=== PATIENT | male | born 1990 | race Caucasian/White ===

== ENCOUNTER 2022-04-29 14:37 | Outpatient (CLI) | payer OTHER ==
[2022-04-29 19:39] LABS: BASOPHILS % (AUTO) 0.6 %; EOSINOPHILS # (AUTO) 0.2 10^3/uL (0.0-0.7); EOSINOPHILS % (AUTO) 2.4 %; HCT - HEMATOCRIT 41.5 % (42.0-52.0); HGB - HEMOGLOBIN 14.6 g/dL (14.0-18.0); LYMPHOCYTES # (AUTO) 2.8 10^3/uL (1.5-3.5); LYMPHOCYTES % (AUTO) 43.8 %; MEAN CORPUSCULAR HEMOGLOBIN 31.5 pg (27.0-31.0); MEAN CORPUSCULAR HGB CONC 35.2 g/dL (32.0-36.0); MEAN CORPUSCULAR VOLUME 89.6 fL (80.0-94.0); MEAN PLATELET VOLUME 10.2 fL (7.4-11.4); MONOCYTES # (AUTO) 0.5 10^3/uL (0.0-1.0); MONOCYTES % (AUTO) 7.4 %; NEUTROPHILS # (AUTO) 2.9 10^3/uL (1.5-6.6); NEUTROPHILS % (AUTO) 45.5 %; PLT - PLATELET COUNT 240 10^3/uL (130-450); RED BLOOD COUNT 4.63 10^6/uL (4.70-6.10); RED CELL DISTRIBUTION WIDTH 12.2 % (12.0-15.0); WHITE BLOOD COUNT 6.4 x10^3/uL (4.8-10.8)
[2022-04-29 19:55] LABS: ALBUMIN 4.4 g/dL (3.2-5.5); ALBUMIN/GLOBULIN RATIO 1.4 (1.0-2.2); ALKALINE PHOSPHATASE 65 IU/L (42-121); ALT ALANINE AMINOTRANSFERASE 91 IU/L (10-60); AST ASPARTATE AMINOTRANSFERASE 38 IU/L (10-42); BILIRUBIN,DIRECT 0.1 mg/dL (0.1-0.5); BILIRUBIN,TOTAL 0.8 mg/dL (0.2-1.0); BUN - BLOOD UREA NITROGEN 15 mg/dL (6-20); CALCIUM 9.5 mg/dL (8.5-10.3); CARBON DIOXIDE - CO2 30 mmol/L (21-32); CHLORIDE 95 mmol/L (101-111); CHOL/HDL RATIO 7.4 (<5.0); CHOLESTEROL 215 mg/dL; CREATININE 1.1 mg/dL (0.6-1.2); GFR - MDRD 78 (>89); GLUCOSE 97 mg/dL (70-100); HDL CHOLESTEROL 29 mg/dL; LDL CHOLESTEROL,CALCULATED 150 mg/dL; LDL/HDL RATIO 5.2 (<3.6); POTASSIUM 2.6 mmol/L (3.5-5.0); SODIUM 135 mmol/L (135-145); TOTAL PROTEIN 7.6 g/dL (6.7-8.2); TRIGLYCERIDES 182 mg/dL; VLDL CHOLESTEROL 36 mg/dL
[2022-04-29 20:04] LABS: THYROID STIMULATING HORMONE 2.67 uIU/mL (0.34-5.60)
[2022-04-29 21:26] LABS: ESTIMATED AVERAGE GLUCOSE 111 mg/dL (70-100); HEMOGLOBIN A1c% 5.5 % (4.27-6.07)
[2022-05-01 07:09] LABS: HCV AB <0.1 s/co ratio (0.0-0.9)
[2022-05-02 00:08] LABS: HIV SCREEN 4TH GENERATION Non Reactive (Non Reactive)
== END 2022-04-29 14:38 | disposition home or self-care (01) ==
LOC: LAB.S 14:37
PROVIDERS: ATTEND Nurse Practitioner Acute Care
DX: R94.5 Abnormal results of liver function studies (principal); Z79.899 Other long term (current) drug therapy; Z13.220 Encounter for screening for lipoid disorders; Z13.1 Encounter for screening for diabetes mellitus; Z13.29 Encounter for screening for other suspected endocrine disorder; Z11.4 Encounter for screening for human immunodeficiency virus [HIV]
CPT/HCPCS: 36415; 80053; 80061; 82248; 83036; 83721; 84443; 85025; 86803; 87389

== ENCOUNTER 2022-05-05 12:55 | Outpatient (CLI) | payer OTHER ==
[2022-05-05 14:40] LABS: MAGNESIUM 1.9 mg/dL (1.7-2.8); POTASSIUM 3.2 mmol/L (3.5-5.0)
== END 2022-05-05 12:56 | disposition home or self-care (01) ==
LOC: LAB.S 12:55
PROVIDERS: ATTEND Nurse Practitioner Acute Care
DX: E87.6 Hypokalemia (principal); Z79.899 Other long term (current) drug therapy
CPT/HCPCS: 36415; 83735; 84132

== ENCOUNTER 2022-05-25 14:23 | Outpatient (CLI) | payer OTHER ==
[2022-05-25 20:39] LABS: MAGNESIUM 2.1 mg/dL (1.7-2.8); POTASSIUM 3.4 mmol/L (3.5-5.0)
== END 2022-05-25 14:24 | disposition home or self-care (01) ==
LOC: LAB.S 14:23
PROVIDERS: ATTEND Nurse Practitioner Acute Care
DX: E87.6 Hypokalemia (principal); E83.42 Hypomagnesemia
CPT/HCPCS: 36415; 83735; 84132

== ENCOUNTER 2022-06-12 13:06 | Outpatient (CLI) | payer OTHER ==
[2022-06-12 14:24] VITALS: BP 188/110
--- NOTE | 2022-06-12 14:24 | SLEEP CARE CONSULTATION ---
Information from patient questionnaire entered by Dora Milian. I have reviewed and concur with the information entered by Dora Milian. This document represents the service I personally performed and the decisions made by me, Viridiana Chavez ARNP. History of Present Illness Service Date and Time: 06/12/2022 1306 Reason for Visit: New patient, sleep apnea on CPAP therapy Chief Complaint: reports: Other (UPDATE SUPPLIES) Date of Onset: 2YRS Usual bedtime: 2-3AM Time it takes to fall asleep: 1HR Snores at night: Yes Observed to quit breathing while asleep: Yes Sleeps alone due to snoring: No Number of times waking at night: 0 Toss, Turn, or Twitch while sleeping: Yes Recalls having dreams: No Usually gets out of bed at: 11-AM-12PM Feels refreshed in the morning: No Morning headache: No Sleepy or fatigued during the day: Yes Ever fallen asleep while driving: No Takes day naps: Yes Dreams during day naps: No Prior sleep studies: Yes (11/21/2019 [facility] ) Additional HPI information: BLAKE BENSON was previously diagnosed to have unknown, AHI unknown, sleep apnea-hypopnea syndrome and comes in today to establish care for CPAP therapy. He was diagnosed at [facility] in 2019 and states he was told it was very bad. - Parasomnia Symptoms Ever been unable to move upon waking from sleep: No Walks in sleep: No Talks in sleep: No Ever acted out dreams in sleep: No Ever felt weak in the knees when startled or emotional: No Bothered by creepy, crawly, restless sensations in legs: No Problems with memory or concentration: Yes CPAP Compliance Data - Data Reviewed with Patient Average duration of nightly device use: 6 hours 59 minutes Compliance rate %: 97.2 (180/180 days used) Current pressure setting (cmH2O): 6-11 Average residual AHI: 2.2 Central apnea: 0.2 Obstructive apnea: 0.2 Hypopnea: 1.8 Compliance data discussion: He has a Dreamstation that was setup 08/2019. He was getting supplies from [employer] but started having trouble getting them about a year ago and now is buying them online. He is using a full face, Resmed Airfit F20 mask. Subjective Patient concerns: reports: dry mouth, nose, throat (occasionally), other (occasional dry eye). denies: aerophagia, mask discomfort, air blowing in eyes, mask leak noise, condensation in mask/hose, nasal congestion, epistaxis Observed to snore while using device: No Current pressure setting perceived as: comfortable On therapy, patient: reports: sleeping better, awakening more refreshed, being more awake and alert during the day, more rested overall, other (can't sleep without machine). denies: drowsiness while driving Initial [place] Sleepiness Scale score: 3 Past Medical History Past Medical History: reports: Hypertension, Asthma Social History The patient's occupation is a [employer]. Patient is Single and lives in [place]. Have you smoked in the past 12 months: No Alcohol use: Yes Alcohol amount and frequency: 1-2 DRINKS RARELY Caffeine use: Yes Caffeine amount and frequency: 1-2 DRINKS DAILY Family History Family history of sleep disordered breathing: No Family Hx Sleep Apnea: Mother: Snoring, Father: Snoring Allergies and Home Medications Known drug allergies: No Drug allergies reviewed: Yes Home medication list reviewed: Yes Allergy and home medication list: Medications: Losartan Amlodipine vitamin D Review of Systems Weight gain over past 5 years: 30 Cardiovascular: reports: high blood pressure Respiratory: reports: shortness of breath Neurological: denies: headaches Psychiatric: denies: anxiety, depression Ear/Nose/Throat: denies: tonsillectomy, wisdom teeth removed Endocrine: reports: sluggishness Physical Exam Vital signs obtained and entered by: DORA López MA Blood Pressure: 188/110 (LEFT ARM) Cuff size: regular Heart Rate: 128 O2 Saturation: 96 Height: 5 ft 11 in Weight: 251 lb 9.6 oz Body Mass Index: 35.1 BMI Classification: Obese Neck circumference: 18.5 Heart: regular rate and rhythm Lungs: clear bilaterally Impression and Plan 1. Obstructive Sleep Apnea-Hypopnea Syndrome, unknown, with good treatment compliance and good apnea control. On CPAP therapy, the patient has better sleep quality and is more rested overall. He has a [employer] Dreamstation that is on the recall but he was told he had to send the machine back to them for them to fix i t. He did not know when he would get it back and felt he could not go without his CPAP for long time. He states he read somewhere that his insurance ([employer]) would replace a recalled device for those who have not got a replacement. He would like to try to replace his machine. We have requested his sleep study results from his last sleep provider but have not yet received them. Once I have his last sleep study, I will be able to try to write for a replacement CPAP. If we are unable to obtain adequate records of his sleep study I will try to authorize a new sleep study to verify his diagnosis and severity. He would also like to try a different DME in the area. I will also add this to his prescription once I have the other records I need to write the order. He voiced understanding and agreement with plan. Patient's apnea severity and rationale for treatment to reduce apnea, improve sleep quality and reduce cardiovascular and cerebrovascular events was reviewed. I also reviewed the benefit of consistent device use of CPAP for hypertension. 2. Obesity, unspecified. Currently patients BMI is 35.1. Obesity increases the risk of apnea, CPAP pressure requirements and overall health risks especially cardiovascular and diabetes. Thus patient is advised to lose weight. * Change auto CPAP pressure to 9-11 cmH2O * Obtain copy of his sleep study prior to updating supplies and machine * Update machine if insurance will allow it * Update supplies * Transfer DME * Notify me if snoring with mask or feeling that the pressure is too much or too little * Attempt to lose weight * Call this office if any problems using CPAP * Return for follow up either after updating machine or sleep study, or sooner if concerns arise Counseling Topics: Weight loss health impact Visit Type: In Office Time Spent with Patient (minutes): 40 Provider Statement: I spent 100% of the Face to Face Visit with the patient with greater than 50% spent counseling the patient and coordination of care.
== END 2022-06-12 13:07 | disposition home or self-care (01) ==
LOC: SC 13:06
PROVIDERS: ATTEND Nurse Practitioner Family
DX: G47.33 Obstructive sleep apnea (adult) (pediatric) (principal); E66.9 Obesity, unspecified; Z68.35 Body mass index [BMI] 35.0-35.9, adult
CPT/HCPCS: 99203; 99212

== ENCOUNTER 2022-07-17 12:41 | Outpatient (CLI) | payer MEDICAID ==
[2022-07-17 14:42] LABS: POTASSIUM 3.4 mmol/L (3.5-5.0)
== END 2022-07-17 12:42 | disposition home or self-care (01) ==
LOC: LAB.S 12:41
PROVIDERS: ATTEND Nurse Practitioner Acute Care
DX: E87.6 Hypokalemia (principal); E83.42 Hypomagnesemia
CPT/HCPCS: 36415; 83735; 84132

== ENCOUNTER 2022-08-18 08:57 | Outpatient (CLI) | payer MEDICAID ==
[2022-09-03 19:07] LABS: ALDOSTERONE 11.2 ng/dL (0.0-30.0); ALDOSTERONE/RENIN RATIO 31.3 (0.0-30.0); RENIN ACTIVITY PLASMA 0.358 ng/mL/hr (0.167-5.380)
== END 2022-08-18 08:58 | disposition home or self-care (01) ==
LOC: LAB.S 08:57
PROVIDERS: ATTEND Nurse Practitioner Acute Care
DX: I10 Essential (primary) hypertension (principal); E87.6 Hypokalemia
CPT/HCPCS: 36415; 82088; 84132; 84244

== ENCOUNTER 2022-09-28 13:15 | Outpatient (CLI) | payer MEDICAID | END 2022-09-28 13:16 | disposition home or self-care (01) | LOC: LAB.S 13:15 | PROVIDERS: ATTEND Nurse Practitioner Acute Care | DX: E87.6 Hypokalemia (principal) | CPT/HCPCS: 36415; 84132 ==

== ENCOUNTER 2022-10-08 06:49 | Outpatient (CLI) | payer MEDICAID ==
--- NOTE | 2022-10-08 12:47 | Ultrasound Report ---
PROCEDURE: Arterial Visceral Complete INDICATIONS: RESISTANT HYPERTENSIVE DISORDER TECHNIQUE: Real time scanning was performed of both kidneys, followed by Color and pulsed Doppler in terrogation of the renal vessels. COMPARISON: None FINDINGS: Aortic peak systolic velocity: 126 cm/s. Right side: [place]-scale imaging: The right kidney measures 10.8 cm in length. No hydronephrosis. No nephrolithias is. Renal cortex is normal in echogenicity. No suspicious solid renal masses. Proximal renal artery peak systolic velocity: 122 cm/s. Mid renal artery peak systolic velocity: 133 cm/s. Distal renal artery peak systolic velocity: 101 cm/s. Renal vein: Patent, without thrombus. Peak renal/aortic ratio (RAR): 1.06. Left side: Branham-scale imaging: The left kidney measures 12.8 cm in length. No hydronephrosis. The left kidney h as a 1.2 cm cyst No nephrolithiasis. Renal cortex is normal in echogenicity. No suspicious solid re nal masses. Proximal renal artery peak systolic velocity: 116 cm/s. Mid-renal artery peak systolic velocity: 138 cm/s. Distal renal artery peak systolic velocity: 125 cm/s. Renal vein: Patent, without thrombus. Peak renal/aortic ratio (RAR): 1.1. IMPRESSION: No ultrasound evidence of renal artery stenosis. Reviewed by: Calixto Rogers on 10/08/2022 12:46 PM PDT Approved by: Calixto Rogers on 10/08/2022 12:46 PM PDT Station ID: [id number]
== END 2022-10-08 06:50 | disposition home or self-care (01) ==
LOC: DI 06:49
PROVIDERS: ATTEND Nurse Practitioner Acute Care
DX: I10 Essential (primary) hypertension (principal)
CPT/HCPCS: 93975

== ENCOUNTER 2022-11-24 13:17 | Outpatient (CLI) | payer MEDICAID | END 2022-11-24 13:18 | disposition home or self-care (01) | LOC: LAB.S 13:17 | PROVIDERS: ATTEND Nurse Practitioner Acute Care | DX: E87.6 Hypokalemia (principal) | CPT/HCPCS: 36415; 84132 ==

== ENCOUNTER 2023-01-18 14:31 | Outpatient (CLI) | payer MEDICAID | END 2023-01-18 14:32 | disposition home or self-care (01) | LOC: MAC.MOP 14:31 | PROVIDERS: ATTEND Nurse Practitioner Acute Care | DX: R00.2 Palpitations (principal); I1A.0 Resistant hypertension | CPT/HCPCS: 93242 ==

== ENCOUNTER 2023-03-10 07:56 | Outpatient (CLI) | payer MEDICAID | END 2023-03-10 07:57 | disposition home or self-care (01) | LOC: LAB.S 07:56 | PROVIDERS: ATTEND Nurse Practitioner Acute Care | DX: E87.6 Hypokalemia (principal) | CPT/HCPCS: 36415; 84132 ==

== ENCOUNTER 2023-03-22 10:00 | Outpatient (CLI) | payer MEDICAID | END 2023-03-22 10:01 | disposition home or self-care (01) | LOC: LAB.S 10:00 | PROVIDERS: ATTEND Internal Medicine Endocrinology, Diabetes & Metabolism | DX: E26.9 Hyperaldosteronism, unspecified (principal) | CPT/HCPCS: 36415; 84132 ==

== ENCOUNTER 2023-04-01 08:00 | Outpatient (CLI) | payer MEDICAID | END 2023-04-01 23:59 | disposition home or self-care (01) | LOC: LAB.S 08:00 | PROVIDERS: ATTEND Emergency Medicine | DX: L03.012 Cellulitis of left finger (principal) | CPT/HCPCS: 87070; 87205 ==

== ENCOUNTER 2023-04-02 12:30 | Outpatient (CLI) | payer MEDICAID | END 2023-04-02 12:31 | disposition home or self-care (01) | LOC: LAB.S 12:30 | PROVIDERS: ATTEND Internal Medicine Endocrinology, Diabetes & Metabolism | DX: E26.9 Hyperaldosteronism, unspecified (principal) | CPT/HCPCS: 36415; 84132 ==

== ENCOUNTER 2023-05-12 13:13 | Outpatient (CLI) | payer MEDICAID | END 2023-05-12 13:14 | disposition home or self-care (01) | LOC: LAB.S 13:13 | PROVIDERS: ATTEND Internal Medicine Endocrinology, Diabetes & Metabolism | DX: E26.9 Hyperaldosteronism, unspecified (principal) | CPT/HCPCS: 36415; 84132 ==

== ENCOUNTER 2023-09-23 07:06 | Outpatient (CLI) | payer MEDICAID ==
[2023-09-23 14:21] LABS: BASOPHILS # (AUTO) 0.1 10^3/uL (0.0-0.1); EOSINOPHILS # (AUTO) 0.2 10^3/uL (0.0-0.7); EOSINOPHILS % (AUTO) 2.6 %; HCT - HEMATOCRIT 40.2 % (42.0-52.0); HGB - HEMOGLOBIN 13.5 g/dL (14.0-18.0); LYMPHOCYTES # (AUTO) 3.1 10^3/uL (1.5-3.5); LYMPHOCYTES % (AUTO) 42.4 %; MEAN CORPUSCULAR HEMOGLOBIN 31.2 pg (27.0-31.0); MEAN CORPUSCULAR HGB CONC 33.6 g/dL (32.0-36.0); MEAN CORPUSCULAR VOLUME 92.8 fL (80.0-94.0); MEAN PLATELET VOLUME 10.1 fL (7.4-11.4); MONOCYTES # (AUTO) 0.6 10^3/uL (0.0-1.0); MONOCYTES % (AUTO) 7.6 %; NEUTROPHILS # (AUTO) 3.4 10^3/uL (1.5-6.6); PLT - PLATELET COUNT 224 10^3/uL (130-450); RED BLOOD COUNT 4.33 10^6/uL (4.70-6.10); RED CELL DISTRIBUTION WIDTH 12.7 % (12.0-15.0); WHITE BLOOD COUNT 7.3 x10^3/uL (4.8-10.8)
[2023-09-23 15:20] LABS: ALBUMIN 4.7 g/dL (3.2-5.5); ALBUMIN/GLOBULIN RATIO 2.5 (1.0-2.2); ALKALINE PHOSPHATASE 64 IU/L (42-121); ALT ALANINE AMINOTRANSFERASE 55 IU/L (10-60); AST ASPARTATE AMINOTRANSFERASE 26 IU/L (10-42); BILIRUBIN,TOTAL 0.5 mg/dL (0.2-1.0); BUN - BLOOD UREA NITROGEN 10 mg/dL (6-20); CALCIUM 9.3 mg/dL (8.5-10.3); CARBON DIOXIDE - CO2 28 mmol/L (21-32); CHLORIDE 107 mmol/L (101-111); CHOL/HDL RATIO 5.7 (<5.0); CHOLESTEROL 188 mg/dL; GFR - MDRD 87 (>89); GLUCOSE 96 mg/dL (74-104); HDL CHOLESTEROL 33 mg/dL; LDL CHOLESTEROL,CALCULATED 134 mg/dL; LDL/HDL RATIO 4.1 (<3.6); POTASSIUM 3.7 mmol/L (3.5-4.5); SODIUM 141 mmol/L (135-145); TOTAL PROTEIN 6.6 g/dL (6.4-8.9); TRIGLYCERIDES 106 mg/dL (48-352); VLDL CHOLESTEROL 21 mg/dL
== END 2023-09-23 07:07 | disposition home or self-care (01) ==
LOC: LAB.S 07:06
PROVIDERS: ATTEND Nurse Practitioner Acute Care
DX: Z13.228 Encounter for screening for other metabolic disorders (principal); Z13.220 Encounter for screening for lipoid disorders; Z13.0 Encounter for screening for diseases of the blood and blood-forming organs and certain disorders involving the immune mechanism
CPT/HCPCS: 36415; 80053; 80061; 83721; 85025

== ENCOUNTER 2023-11-04 16:34 | Outpatient (CLI) | payer MEDICAID ==
--- NOTE | 2023-11-04 17:01 | SLEEP CARE CONSULTATION ---
Information from patient questionnaire entered by Dora Milian. I have reviewed and concur with the information entered by Dora Milian. This document represents the service I personally performed and the decisions made by me, Viridiana Chavez ARNP. History of Present Illness Service Date and Time: 11/04/2023 1620 Previous diagnosis: Severe, Obstructive Sleep Apnea-Hypopnea Syndrome AHI: 50 (in 2019) Reason for follow up: annual (NEVER GOT MACHINE) Equipment type: CPAP (Dreamstation, not replaced) Equipment obtained from: Other (online) Mask brand: Resmed (AirFit F20) Backup mask available: Yes Last cushion change: 2 weeks Prior sleep studies: Yes (11/21/2019 [facility] ) HPI additional information: BLAKE BENSON was diagnosed to have severe, AHI 50, obstructive sleep apnea-hypopnea syndrome and returns via video appointment today for CPAP therapy annual follow-up. Sleep Study - Results Prior sleep studies: Yes (11/21/2019 [facility] ) CPAP Compliance Data - Data Reviewed with Patient Average duration of nightly device use: 7 hours 17 minutes Compliance rate %: 97.8 (90/90 days used) Current pressure setting (cmH2O): 6.5-20 Average residual AHI: 1.7 Central apnea: 0.1 Obstructive apnea: 0.2 Hypopnea: 1.4 Average large leak: 26 mins 12 secs Subjective Patient concerns: reports: aerophagia (occasional). denies: mask discomfort, air blowing in eyes, mask leak noise, condensation in mask/hose, nasal congestion, dry mouth, nose, throat, epistaxis Observed to snore while using device: No Current pressure setting perceived as: comfortable On therapy, patient: reports: sleeping better, awakening more refreshed, being more awake and alert during the day, more rested overall. denies: drowsiness while driving Initial [place] Sleepiness Scale score: 3 Current [place] Sleepiness Scale score: 8 (11/04/23) Allergies and Home Medications Known drug allergies: No Drug allergies reviewed: Yes Home medication list reviewed: Yes (no changes) Allergy and home medication list: Allergies No Known Drug Allergies Allergy (Verified 11/02/23 12:05) Review of Systems Review of systems same as previous: Yes (NO CHANGE) Physical Exam Vital signs obtained and entered by: DORA López MA Blood Pressure: 135/85 (PER PT) Height: 5 ft 11 in (PER PT) Weight: 270 lb (PER PT) Body Mass Index: 37.6 BMI Classification: Obese Impression and Plan 1. Obstructive Sleep Apnea-Hypopnea Syndrome, severe, with good treatment compliance and good apnea control. On CPAP therapy, the patient has better sleep quality and is more rested overall. His insurance changed after our last appointment and due to some break in communication he was unable to get a replacement for his CPAP. He says his current insurance has said they will cover a replacement device. He would also like to work with a different DME and so I will add a change of DME to his orders. A [facility] prescription will be made. Compliance guidelines for new device and follow up discussed. He would lke to try a different style of full face mask. He also would like to get a travel CPAP. He asks if he can use a travel CPAP instead of getting a regular CPAP. I explained that usually insurance does not cover travel devices. He voiced understanding and asks for a prescription for a travel CPAP that he may obtain on his own. Patient's apnea severity and rationale for treatment to reduce apnea, improve sleep quality and reduce cardiovascular and cerebrovascular events was reviewed. I also reviewed the benefit of consistent device use of CPAP for hypertension. 2. Obesity, unspecified. Currently patients BMI is 37.6. Obesity increases the risk of apnea, CPAP pressure requirements and overall health risks especially cardiovascular and diabetes. Thus patient is advised to lose weight. * Continue auto CPAP pressure at 9-11 cmH2O * Transfer DME * Mask fitting * Update machine and supplies * Prescription for travel CPAP per his request * Notify me if snoring with mask or feeling that the pressure is too much or too little * Attempt to lose weight * Call this office if any problems using CPAP * Return for follow up one month after obtaining new device, or sooner if concerns arise Adjust device pressure to (cmH2O): 9-11 Counseling Topics: Spare mask, Weight loss health impact Prescriptions: Auto CPAP, Device supplies Plan: update machine and compliance followup Visit Type: Telehealth Video Video Type: Doximity Patient Location: Home Location of Provider: Office Patient agrees and consents to this telehealth visit type: Yes Patient agrees to have their insurance billed: Yes Time Spent with Patient (minutes): 29 Provider Statement: I spent 100% of the Telehealth Video Call with the patient with greater than 50% spent counseling the patient and coordination of care.
[2023-11-04 17:03] VITALS: BP 135/85
== END 2023-11-04 16:35 | disposition home or self-care (01) ==
LOC: SC 16:34
PROVIDERS: ATTEND Nurse Practitioner Family
DX: G47.33 Obstructive sleep apnea (adult) (pediatric) (principal); E66.9 Obesity, unspecified; Z68.37 Body mass index [BMI] 37.0-37.9, adult